=== PATIENT | female | born 1950 | race Caucasian/White ===

== ENCOUNTER → 2016-10-19 | Day surgery (SDC) | payer OTHER ==
[~2016-10-19] MED LIST: ATOR10; BUPIVACAINE HCL PF 0.5% 30 ML VIAL ONE; LACTATED RINGER'S 1000 ML INJ 1,000 ML ONE; MIDAZOLAM HCL 2 MG/2 ML VIAL ONE; ONDANSETRON HCL 4 MG/2 ML VIAL IV PUSH ONE; PROPOFOL 200 MG/20 ML AMP IV ONE; SYNT112T; ceFAZolin 2 GM PREMIX 50 ML ONE
--- NOTE | 2016-10-23 08:29 | MP ---
cc: KARMA PORRAS DATE OF SURGERY October 19, [address] Karma Porras AUTOMATION TECH None. PREOPERATIVE DIAGNOSES 1. Right painful retained hardware. 2. Right first metatarsal medial exostosis. POSTOPERATIVE DIAGNOSES 1. Right painful retained hardware. 2. Right first metatarsal medial exostosis. PROCEDURE PERFORMED Right foot removal. Right foot Silver osteotomy of the first metatarsal head. PATHOLOGY SENT None. ANESTHESIA General. HEMOSTASIS Pneumatic ankle tourniquet set at 250 mmHg. ESTIMATED BLOOD LOSS Less than 5 mL. INJECTABLES 10 mL of 0.5% Marcaine plain. MATERIALS USED 3-0 Monocryl and 3-0 Prolene. COMPLICATIONS None. INDICATIONS Ms. Fishman is a patient well-known to me who had an Ede bunionectomy last year. She began developing pain around the hardware site and also felt that she still had a medial eminence which caused pain in shoe gear. The decision was made to remove the hardware and perform further osteotomy of the medial aspect of the first metatarsal head. The consent was signed. The procedure was explained. No guarantees were given. PROCEDURE Following IV sedation, the patient was brought into the operating room and placed on the operating table in a supine position. Pneumatic ankle tourniquet was placed around the right ankle. The foot was then scrubbed, prepped and draped in the usual aseptic manner. Attention was directed to the dorsal aspect of the first metatarsal head dorsally where a linear longitudinal incision was created, deepened through skin and subcutaneous until the screw head was identified. The screw had not subsided into the bone much and was able to be captured with a screwdriver alone to remove it from the foot and was then removed from the field in toto and sterilized as the patient wished to retain the screw after surgery. The area of the screw and instrumentation was cleaned and any damaged bone was removed using a rongeur. At this time there was noted heavy scar tissue on the medial aspect of the first metatarsophalangeal joint. This was from the healthy tissue using sharp dissection and removed from the field in toto. There was a mild eminence of the first metatarsal head which still persisting. An oscillating saw was used to remove this excessive bone. It was flushed with copious amounts of sterile saline. The patient did not appear to need a capsulorrhaphy at this time. Under fluoroscopy the current positioning was acceptable. The area was then flushed with copious amounts of sterile saline. Deep and subcutaneous tissues were closed with 3-0 Monocryl, the skin was closed with 3-0 Prolene. 10 cc of 0.5% Marcaine plain were injected around the metatarsophalangeal joint and first ray. The pneumatic ankle tourniquet was released. There was a prompt hyperemic response to all digits of the right foot and sterile dressing of Adaptic, 4x4s, Tony and an Antonio wrap were applied. The patient tolerated the procedure and the anesthesia well. She will recover in the PACU for a period of time before being discharged home with written and oral postoperative instructions. Karma Porras LMW/SSB /7:57 AM /8:13 AM
== END | disposition home or self-care (01) ==
LOC: ESDC 08:56
PROVIDERS: ATTEND Podiatrist Foot & Ankle Surgery
DX: T84.84XA Pain due to internal orthopedic prosthetic devices, implants and grafts, initial encounter (principal)
CPT/HCPCS: 01480; 20680; 28292; 73620; 76000; J0690; J2250; J2405; J3010; J7120

== ENCOUNTER → 2017-01-19 | Outpatient (CLI) | payer OTHER ==
[~2017-01-19] MED LIST changes: -BUPIVACAINE HCL PF 0.5% 30 ML VIAL ONE; -LACTATED RINGER'S 1000 ML INJ 1,000 ML ONE; -MIDAZOLAM HCL 2 MG/2 ML VIAL ONE; -ONDANSETRON HCL 4 MG/2 ML VIAL IV PUSH ONE; -PROPOFOL 200 MG/20 ML AMP IV ONE; -ceFAZolin 2 GM PREMIX 50 ML ONE
[2017-01-19 08:38] LABS: AUTOMATED NEUTROPHIL # 3.2 TH/MM3 (1.8-7.7); BASOPHIL % 0.7 % (0.0-2.0); EOSINOPHIL # 0.2 TH/MM3 (0-0.4); EOSINOPHIL % 4.3 % (0.0-4.0); HEMATOCRIT 37.3 % (35.0-46.0); HEMO FLAGS DIFF FINAL; LYMPH % 20.6 % (9.0-44.0); MEAN CELL VOLUME 91.9 FL (80.0-100.0); MEAN CORPUSCULAR HEMOGLOBIN 31.2 PG (27.0-34.0); MONO % 7.4 % (0.0-8.0); PLATELET COUNT 164 TH/MM3 (150-450); RED BLOOD COUNT 4.06 MIL/MM3 (4.00-5.30); RED CELL DISTRIBUTION WIDTH 13.3 % (11.6-17.2); WHITE BLOOD COUNT 4.8 TH/MM3 (4.0-11.0)
[2017-01-19 09:06] LABS: ALKALINE PHOSPHATASE 67 U/L (45-117); ALT (GPT) 18 U/L (10-53); ANION GAP 6 MEQ/L (5-15); AST (GOT) 16 U/L (15-37); BICARBONATE 29.2 MEQ/L (21.0-32.0); BLOOD UREA NITROGEN 21 MG/DL (7-18); CHLORIDE 105 MEQ/L (98-107); FREE T4 1.48 NG/DL (0.76-1.46); GLOMERULAR FILTRATION RATE 54 ML/MIN (>89); GLUCOSE,FASTING 99 MG/DL (74-99); HDL CHOLESTEROL 65.7 MG/DL (40.0-60.0); LDL CHOLESTEROL 81 MG/DL (0-99); POTASSIUM 4.3 MEQ/L (3.5-5.1); SODIUM (NA) 140 MEQ/L (136-145)
== END ==
LOC: CLAB 08:11
PROVIDERS: ATTEND Family Medicine
DX: E78.2 Mixed hyperlipidemia (principal); E03.9 Hypothyroidism, unspecified; E55.9 Vitamin D deficiency, unspecified; R73.09 Other abnormal glucose
CPT/HCPCS: 36415; 80053; 80061; 82306; 84439; 84443; 85025

== ENCOUNTER → 2017-06-20 | Outpatient (CLI) | payer OTHER ==
[2017-06-20 11:53] LABS: FREE T4 1.77 NG/DL (0.76-1.46)
== END ==
LOC: EEVIPCON 10:12 → CLAB 10:12
PROVIDERS: ATTEND Family Medicine
DX: Z00.00 Encounter for general adult medical examination without abnormal findings (principal); E78.2 Mixed hyperlipidemia; E03.9 Hypothyroidism, unspecified; E55.9 Vitamin D deficiency, unspecified; R73.09 Other abnormal glucose; Z13.820 Encounter for screening for osteoporosis; Z12.11 Encounter for screening for malignant neoplasm of colon
CPT/HCPCS: 36415; 84439; 84443